=== PATIENT | female | born 1985 | race Hispanic/Latino ===

== ENCOUNTER 2020-10-28 20:10 | Emergency (ER) | payer OTHER ==
[~2020-10-28 20:10] MED LIST: MESA0.374 PO; OMEP20CA12 PO; PRED20TA3 PO
[2020-10-28] MEDS ORDERED: ACETAMINOPHEN-CODEINE 300/30MG TAB ONE (20:55)
[2020-10-28] MEDS ORDERED: ONDANSETRON ODT 4 MG TAB ONE (20:55)
== END 2020-10-28 21:29 | disposition home or self-care (01) ==
LOC: EDH 20:10
DX: R51.9 Headache, unspecified (principal); R11.0 Nausea; Z20.828 Contact with and (suspected) exposure to other viral communicable diseases; Z90.49 Acquired absence of other specified parts of digestive tract; Z98.890 Other specified postprocedural states

== ENCOUNTER 2022-03-29 13:22 | Emergency (ER) | payer OTHER ==
[~2022-03-29] VITALS: Ht 160 cm; Wt 58.5 kg
[2022-03-29 14:08] LABS: APPEARANCE,URINE Clear (CLEAR); BILIRUBIN,URINE Negative (NEGATIVE); COLOR,URINE Yellow (YELLOW); GLUCOSE, URINE (UA) Negative (NEGATIVE); KETONES,URINE Negative (NEGATIVE); LEUKOCYTE ESTERASE ,URINE Negative (NEGATIVE); NITRATE,URINE Negative (NEGATIVE); OCCULT BLOOD,URINE Negative (NEGATIVE); PH,URINE 6.5 (5.0-8.0); PROTEIN,URINE Negative (NEGATIVE); UROBILINOGEN,URINE 0.2 mg/dL (0.2-1.0)
[2022-03-29 14:19] LABS: HCG,QUAL RESULT NEGATIVE (NEGATIVE)
[2022-03-29] MEDS ORDERED: 0.9%NACL 1000ML 1,000 ML IV ONE (15:00)
[2022-03-29 15:12] LABS: BASOPHILS % (AUTO) 0.5 % (0.0-5.0); HEMATOCRIT 40.6 % (36-48); LYMPHOCYTES % (AUTO) 40.9 % (21.0-51.0); MEAN CORPUSCULAR HEMOGLOBIN 29.2 pg (27.0-33.0); MEAN CORPUSCULAR HGB CONC 32.3 g/dL (32.0-36.0); MEAN CORPUSCULAR VOLUME 90.4 fL (79-99); MONOCYTES % (AUTO) 5.9 % (3.0-13.0); NEUTROPHILS % (AUTO) 48.5 % (40.0-77.0); PLATELET COUNT (AUTO) 499 K/uL (130-400); RED BLOOD CELL COUNT(AUTO) 4.49 MIL/uL (4.00-5.50); RED CELL DISTRIBUTION WIDTH 14.4 % (11.0-15.5); WHITE BLOOD COUNT (AUTO) 9.7 K/uL (4.8-10.8)
[2022-03-29] MEDS ORDERED: MECL-226 PO (15:15)
[2022-03-29 15:26] LABS: CREATININE 0.7 mg/dL (0.5-1.5); POTASSIUM 3.7 mmol/L (3.5-5.1)
[2022-03-29] MEDS ORDERED: MECLIZINE HCL 25 MG TABLET PO ONE (15:30)
[2022-03-29 15:31] LABS: ALBUMIN 4.1 g/dL (3.5-5.0); BILIRUBIN,TOTAL 0.8 mg/dL (0.2-1.0); TOTAL PROTEIN, SERUM 8.2 g/dL (6.0-8.3)
[2022-03-29 16:45] VITALS: BP 118/71
== END 2022-03-29 16:46 | disposition home or self-care (01) ==
LOC: EDH 13:22
DX: H81.10 Benign paroxysmal vertigo, unspecified ear (principal); Z88.6 Allergy status to analgesic agent; Z88.8 Allergy status to other drugs, medicaments and biological substances; Z79.899 Other long term (current) drug therapy; Z90.49 Acquired absence of other specified parts of digestive tract; Z98.890 Other specified postprocedural states
CPT/HCPCS: 36415; 80053; 81003; 81025; 84484; 85025; 93005; 96360; 99284; J7030

== ENCOUNTER 2022-06-13 15:37 | Emergency (ER) | payer OTHER ==
[~2022-06-13] VITALS: Ht 157.5 cm; Wt 59.0 kg
[~2022-06-13 15:37] MED LIST changes: +MECL-226 PO
[2022-06-13 16:30] LABS: BASOPHILS % (AUTO) 0.5 % (0.0-5.0); EOSINOPHILS % (AUTO) 5.1 % (0.0-8.0); HEMATOCRIT 40.7 % (36-48); LYMPHOCYTES % (AUTO) 32.3 % (21.0-51.0); MEAN CORPUSCULAR HEMOGLOBIN 29.1 pg (27.0-33.0); MEAN CORPUSCULAR HGB CONC 32.4 g/dL (32.0-36.0); MEAN CORPUSCULAR VOLUME 89.6 fL (79-99); MONOCYTES % (AUTO) 9.1 % (3.0-13.0); NEUTROPHILS % (AUTO) 52.8 % (40.0-77.0); PLATELET COUNT (AUTO) 422 K/uL (130-400); RED BLOOD CELL COUNT(AUTO) 4.54 MIL/uL (4.00-5.50); RED CELL DISTRIBUTION WIDTH 15.1 % (11.0-15.5); WHITE BLOOD COUNT (AUTO) 8.8 K/uL (4.8-10.8)
[2022-06-13 16:32] LABS: APPEARANCE,URINE CLEAR (CLEAR); BILIRUBIN,URINE NEGATIVE (NEGATIVE); COLOR,URINE YELLOW (YELLOW); GLUCOSE, URINE (UA) NEGATIVE (NEGATIVE); KETONES,URINE NEGATIVE (NEGATIVE); LEUKOCYTE ESTERASE ,URINE NEGATIVE (NEGATIVE); NITRATE,URINE NEGATIVE (NEGATIVE); OCCULT BLOOD,URINE NEGATIVE (NEGATIVE); PROTEIN,URINE NEGATIVE (NEGATIVE); UROBILINOGEN,URINE 0.2 mg/dL (0.2-1.0)
[2022-06-13] MEDS ORDERED: ACETAMINOPHEN 500 MG TABLET ONE (16:34)
[2022-06-13 16:36] LABS: HCG,QUALITATIVE URINE NEGATIVE (NEGATIVE)
[2022-06-13 16:39] LABS: CREATININE 0.8 mg/dL (0.5-1.5); POTASSIUM 3.4 mmol/L (3.5-5.1)
[2022-06-13] MEDS: ONDANSETRON 4MG TABLET PO ONE (16:41)
[2022-06-13] MEDS: FAMOTIDINE 20MG VIAL IV ONE (16:41)
[2022-06-13] MEDS: DICYCLOMINE HCL 10 MG/5 ML ML PO ONE (16:41)
[2022-06-13 16:46] VITALS: BP 113/73
[2022-06-13] MEDS ORDERED: ACETAMINOPHEN 500 MG TABLET PO ONE (17:00)
[2022-06-13] MEDS ORDERED: DICY20TA2 PO (17:10)
== END 2022-06-13 17:28 | disposition home or self-care (01) ==
LOC: EDH 15:37
DX: A08.4 Viral intestinal infection, unspecified (principal); Z88.6 Allergy status to analgesic agent; Z90.49 Acquired absence of other specified parts of digestive tract; Z79.52 Long term (current) use of systemic steroids; Z79.899 Other long term (current) drug therapy
CPT/HCPCS: 99283; 96374; 80053; 83690; 85025; 81003; 81025; 36415; Q0162; J3490

== ENCOUNTER 2022-09-24 19:50 | Emergency (ER) | payer OTHER ==
[~2022-09-24] VITALS: Ht 157.5 cm; Wt 59.9 kg
[~2022-09-24 19:50] MED LIST changes: +DICY20TA2 PO
[2022-09-24] MEDS ORDERED: PROCHLORPERAZINE 10MG/2ML INJ IV ONE (20:30)
[2022-09-24] MEDS ORDERED: DiphenhydrAMINE HCL 50 MG/ML VIAL IV ONE (20:30)
[2022-09-24 20:33] LABS: APPEARANCE,URINE CLEAR (CLEAR); BILIRUBIN,URINE NEGATIVE (NEGATIVE); COLOR,URINE COLORLESS (YELLOW); GLUCOSE, URINE (UA) NEGATIVE (NEGATIVE); KETONES,URINE NEGATIVE (NEGATIVE); LEUKOCYTE ESTERASE ,URINE 25 Leu/uL (NEGATIVE); NITRATE,URINE NEGATIVE (NEGATIVE); OCCULT BLOOD,URINE NEGATIVE (NEGATIVE); PH,URINE 5.5 (5.0-8.0); PROTEIN,URINE NEGATIVE (NEGATIVE); UROBILINOGEN,URINE 0.2 mg/dL (0.2-1.0)
[2022-09-24 20:47] LABS: HCG,QUALITATIVE URINE NEGATIVE (NEGATIVE)
[2022-09-24 20:54] LABS: RBC,URINE 0-1 /HPF (0-1); SQUAMOUS EPITHELIAL CELL,UR MOD /HPF (0-2)
[2022-09-24 22:09] VITALS: BP 102/62
[2022-09-24] MEDS ORDERED: PROC5TAB54 PO (22:16)
== END 2022-09-24 22:47 | disposition home or self-care (01) ==
LOC: EDH 19:50
DX: G43.909 Migraine, unspecified, not intractable, without status migrainosus (principal); Z88.6 Allergy status to analgesic agent; Z88.8 Allergy status to other drugs, medicaments and biological substances; Z79.899 Other long term (current) drug therapy; Z98.890 Other specified postprocedural states
CPT/HCPCS: 99284; 96374; 96375; 81001; 81025; J1200; J0780

== ENCOUNTER 2022-12-09 08:44 | Emergency (ER) | payer OTHER ==
[~2022-12-09] VITALS: Ht 160 cm; Wt 61.2 kg
[~2022-12-09 08:44] MED LIST changes: +PROC5TAB54 PO
[2022-12-09 09:13] LABS: BASOPHILS % (AUTO) 0.5 % (0.0-5.0); EOSINOPHILS % (AUTO) 12.3 % (0.0-8.0); HEMATOCRIT 34.8 % (36-48); LYMPHOCYTES % (AUTO) 30.8 % (21.0-51.0); MEAN CORPUSCULAR HEMOGLOBIN 26.8 pg (27.0-33.0); MEAN CORPUSCULAR HGB CONC 31.6 g/dL (32.0-36.0); MEAN CORPUSCULAR VOLUME 84.9 fL (79-99); MONOCYTES % (AUTO) 7.1 % (3.0-13.0); PLATELET COUNT (AUTO) 621 K/uL (130-400); RED CELL DISTRIBUTION WIDTH 14.4 % (11.0-15.5); WHITE BLOOD COUNT (AUTO) 14.1 K/uL (4.8-10.8)
[2022-12-09 09:27] LABS: CREATININE 0.8 mg/dL (0.5-1.5); POTASSIUM 3.4 mmol/L (3.5-5.1)
[2022-12-09] MEDS ORDERED: ONDANSETRON 4MG INJ IVP ONE (09:30)
[2022-12-09] MEDS ORDERED: MORPHINE 2 MG SYG IVP ONE (09:30)
[2022-12-09] MEDS ORDERED: 0.9%NACL 1000ML 1,000 ML IV ONE (09:30)
[2022-12-09 09:32] LABS: ALBUMIN 3.3 g/dL (3.5-5.0); TOTAL PROTEIN, SERUM 7.4 g/dL (6.0-8.3)
[2022-12-09 09:45] LABS: APPEARANCE,URINE CLEAR (CLEAR); BILIRUBIN,URINE NEGATIVE (NEGATIVE); COLOR,URINE COLORLESS (YELLOW); GLUCOSE, URINE (UA) NEGATIVE (NEGATIVE); KETONES,URINE NEGATIVE (NEGATIVE); LEUKOCYTE ESTERASE ,URINE NEGATIVE Leu/uL (NEGATIVE); NITRATE,URINE NEGATIVE (NEGATIVE); OCCULT BLOOD,URINE NEGATIVE (NEGATIVE); PROTEIN,URINE NEGATIVE (NEGATIVE); UROBILINOGEN,URINE 0.2 mg/dL (0.2-1.0)
[2022-12-09 10:13] LABS: HCG,QUALITATIVE URINE NEGATIVE (NEGATIVE)
[2022-12-09] MEDS ORDERED: IOHEXOL 350 MG/ML 100ML INFUS..BTL IV ONE (12:03)
[2022-12-09] MEDS ORDERED: PRED20TA3 PO (14:40)
[2022-12-09] MEDS ORDERED: SOLU-MEDROL 40MG VIAL IVP ONE (15:00)
[2022-12-09 15:27] VITALS: BP 132/78
== END 2022-12-09 15:27 | disposition home or self-care (01) ==
LOC: EDH 08:44
DX: K51.90 Ulcerative colitis, unspecified, without complications (principal); E86.0 Dehydration; E87.6 Hypokalemia; G43.909 Migraine, unspecified, not intractable, without status migrainosus; Z79.52 Long term (current) use of systemic steroids; Z88.6 Allergy status to analgesic agent
CPT/HCPCS: 99285; 74177; 96374; 96361; 96375; 82270; 80053; 85025; 81003; 81025; 36415; 87507; J7030; J2405; J2920; Q9967

== ENCOUNTER 2023-06-15 10:20 | Emergency (ER) | payer OTHER ==
[~2023-06-15] VITALS: Ht 160 cm; Wt 63.5 kg
[2023-06-15 11:15] LABS: CREATININE 0.6 mg/dL (0.5-1.5); POTASSIUM 3.4 mmol/L (3.5-5.1)
[2023-06-15 11:16] LABS: APPEARANCE,URINE CLOUDY (CLEAR); BILIRUBIN,URINE NEGATIVE (NEGATIVE); COLOR,URINE YELLOW (YELLOW); GLUCOSE, URINE (UA) NEGATIVE (NEGATIVE); KETONES,URINE NEGATIVE (NEGATIVE); LEUKOCYTE ESTERASE ,URINE MODERATE Leu/uL (NEGATIVE); NITRATE,URINE NEGATIVE (NEGATIVE); OCCULT BLOOD,URINE LARGE (NEGATIVE); PH,URINE 5.5 (5.0-8.0); PROTEIN,URINE TRACE mg/dL (NEGATIVE); UROBILINOGEN,URINE 0.2 mg/dL (0.2-1.0)
[2023-06-15 11:18] LABS: BASOPHILS # (AUTO) 0.03 K/uL (0.00-0.20); BASOPHILS % (AUTO) 0.3 % (0.0-5.0); EOSINOPHILS # (AUTO) 0.41 K/uL (0.00-0.70); EOSINOPHILS % (AUTO) 4.5 % (0.0-8.0); HEMATOCRIT 33.1 % (36-48); IMMATURE GRANULOCYTE ABSOLUTE 0.05 K/uL (0-1); LYMPHOCYTES % (AUTO) 21.9 % (21.0-51.0); MEAN CORPUSCULAR HEMOGLOBIN 28.5 pg (27.0-33.0); MEAN CORPUSCULAR HGB CONC 33.5 g/dL (32.0-36.0); MEAN CORPUSCULAR VOLUME 84.9 fL (79-99); MONOCYTES # (AUTO) 0.6 K/uL (0.1-1.0); MONOCYTES % (AUTO) 6.7 % (3.0-13.0); PLATELET COUNT (AUTO) 577 K/uL (130-400); WHITE BLOOD COUNT (AUTO) 9.1 K/uL (4.8-10.8)
[2023-06-15 11:21] LABS: ADD UA MICROSCOPIC YES
[2023-06-15 11:44] LABS: BILIRUBIN,TOTAL 0.5 mg/dL (0.2-1.0); TOTAL PROTEIN, SERUM 7.3 g/dL (6.0-8.3)
[2023-06-15 11:49] LABS: BACTERIA,URINE Few /HPF (None Seen); SQUAMOUS EPITHELIAL CELL,UR Few /HPF (0-2); WBC,URINE >100 /HPF (0-1)
[2023-06-15] MEDS ORDERED: DIPHENHYDRAMINE HCL 25 MG CAPSULE ONE (12:45)
[2023-06-15 12:47] VITALS: BP 110/76; PULSE 74; RESP 16; O2SAT 99
[2023-06-15] MEDS ORDERED: DIPHENHYDRAMINE HCL 25 MG CAPSULE PO ONE (13:00)
[2023-06-15] MEDS ORDERED: LACTATED RINGERS 1000ML 1,000 ML IV ONE (13:00)
== END 2023-06-15 14:03 | disposition home or self-care (01) ==
LOC: EDH 10:20
DX: O26.892 Other specified pregnancy related conditions, second trimester (principal); H81.10 Benign paroxysmal vertigo, unspecified ear; R82.81 Pyuria; Z3A.16 16 weeks gestation of pregnancy; Z79.52 Long term (current) use of systemic steroids; Z79.899 Other long term (current) drug therapy; Z88.6 Allergy status to analgesic agent
CPT/HCPCS: 99283; 96360; 80053; 84702; 85025; 87088; 81001; 36415; Q0163; J7120

== ENCOUNTER 2024-11-07 11:44 | Emergency (ER) | payer OTHER ==
[~2024-11-07] VITALS: Ht 160 cm; Wt 59.0 kg
[2024-11-07 12:32] LABS: BASOPHILS # (AUTO) 0.06 K/uL (0.00-0.20); BASOPHILS % (AUTO) 0.6 % (0.0-5.0); EOSINOPHILS # (AUTO) 0.85 K/uL (0.00-0.70); EOSINOPHILS % (AUTO) 8.1 % (0.0-8.0); HEMATOCRIT 37.5 % (36-48); IMMATURE GRANULOCYTE ABSOLUTE 0.02 K/uL (0-1); LYMPHOCYTES # (AUTO) 2.9 K/uL (1.0-4.8); LYMPHOCYTES % (AUTO) 28.1 % (21.0-51.0); MEAN CORPUSCULAR HEMOGLOBIN 28.6 pg (27.0-33.0); MEAN CORPUSCULAR HGB CONC 31.7 g/dL (32.0-36.0); MEAN CORPUSCULAR VOLUME 90.1 fL (79-99); MONOCYTES # (AUTO) 0.8 K/uL (0.1-1.0); MONOCYTES % (AUTO) 7.3 % (3.0-13.0); NEUTROPHILS # (AUTO) 5.8 K/uL (1.8-7.7); NEUTROPHILS % (AUTO) 55.7 % (40.0-77.0); PLATELET COUNT (AUTO) 583 K/uL (130-400); RED BLOOD CELL COUNT(AUTO) 4.16 MIL/uL (4.00-5.50); RED CELL DISTRIBUTION WIDTH 14.6 % (11.0-15.5); WHITE BLOOD COUNT (AUTO) 10.5 K/uL (4.8-10.8)
[2024-11-07] MEDS ORDERED: Solu-medROL 125MG VIAL IVP STA (12:57)
[2024-11-07 13:09] LABS: CREATININE 0.5 mg/dL (0.5-1.0); POTASSIUM 3.8 mmol/L (3.5-5.1)
[2024-11-07] MEDS: Solu-medROL 125MG VIAL IM ONE (13:20)
[2024-11-07 13:46] LABS: APPEARANCE,URINE CLEAR (CLEAR); BILIRUBIN,URINE NEGATIVE (NEGATIVE); COLOR,URINE COLORLESS (YELLOW); GLUCOSE, URINE (UA) NEGATIVE (NEGATIVE); KETONES,URINE NEGATIVE (NEGATIVE); LEUKOCYTE ESTERASE ,URINE NEGATIVE Leu/uL (NEGATIVE); NITRATE,URINE NEGATIVE (NEGATIVE); OCCULT BLOOD,URINE NEGATIVE (NEGATIVE); PH,URINE 6.5 (5.0-8.0); PROTEIN,URINE NEGATIVE (NEGATIVE); UROBILINOGEN,URINE 0.2 mg/dL (0.2-1.0)
[2024-11-07 13:48] LABS: ADD UA MICROSCOPIC NO
[2024-11-07] MEDS ORDERED: METH4TAB3 PO (14:00)
--- NOTE | 2024-11-07 14:01 | ERN ---
ED Note History of Present Illness Stated Complaint: LOOSE STOOL Chief Complaint: Diarrhea Time Seen by MD: 11:45 Time Seen by Midlevel: 11:50 Dictation: 39-year-old female with a history of ulcerative colitis coming in complaining of diarrhea since Tuesday. Patient states he has no blood in the stool knee blood on wiping patient is attributing to wiping too much. Patient is currently on Humira. 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 States she has been appointment today and I do feel good to decided to come in. Patient states it is feels like her flare-ups. Allergies: Coded Allergies: aspirin (Unverified Allergy, Unknown, 03/29/22) bismuth subsalicylate (Unverified Allergy, Unknown, 03/29/22) ibuprofen (Unverified Allergy, Unknown, 03/29/22) Home Meds Active Scripts Prednisone (Prednisone) 20 Mg Tablet, 40 MG PO AD for 7 Days, #14 TAB Prov:LANCE LIZARRAGA MD 12/09/22 Prochlorperazine Maleate (Compazine) 5 Mg Tab, 5 MG PO TID for migraine headache, #15 TAB Prov:JENNIE JACOBO MD 09/24/22 Dicyclomine HCl (Bentyl) 20 Mg Tab, 20 MG PO QIDP, #28 TAB Prov:MAYANK JUNE 06/13/22 Meclizine HCl (Meclizine HCl) 12.5 Mg Tablet, 25 MG PO TID PRN for DIZZINESS, #15 TAB Prov:JOY HOPKINS 03/29/22 Reported Medications Mesalamine (Mesalamine ER) 0.375 Gm Cap.er.24h, 1.5 GM PO DAILY, CAPSULE. 12/09/19 Prednisone (Prednisone) 20 Mg Tablet, 40 MG PO DAILY, TAB 12/09/19 Omeprazole (Omeprazole) 20 Mg Capsule.dr 20 MG PO DAILY, CAP 12/09/19 Past Medical History Past Medical History: Other Additional Past Medical Hx: ULCERATIVE COLITIS Surgical History: Surgical History Other: LEFT ACL REPAIR Family History: Negative Social History: Negative : 4 Para: 3 Review of System Dictation Constitutional: Negative for fever,chills, and weight loss Eyes: Negative for injury, pain,redness, and discharge ENT: Negative for injury,pain or swelling Cardiovascular: Negative for chest pain, palpitations, and edema Respiratory: Negative for shortness of breath, cough, and wheezing, Abdomen/GI: Positive for abdominal pain, no nausea, no vomiting, diarrhea Back: Negative for injury and pain : Negative for injury, bleeding and discharge MS/Extremity: Negative for injury and deformity Skin: Negative for rash, and discoloration Neuro: Negative for headache, weakness, numbness, tingling, and seizure Psych: Negative for suicide ideation, homicidal ideation, and hallucinations Review of Systems: was completed Initial Vital Sign VS Vital Signs Date Time Temp Pulse Resp B/P (MAP) Pulse Ox O2 Delivery O2 Flow Rate FiO2 11/07/24 11:58 97.3 88 20 117/75 99 Room Air 11/07/24 12:39 0 21 Physical Exam Dictation General: awake, alert, NAD Head/Face: Normocephalic, atraumatic Eyes: PERRL, EOMI, vision at baseline ENT: oral cavity clear, TMs clear, no signs of infection Neck: Trachea midline, supple, no nuchal rigidity Cardiovascular: RRR, normal S1/S2, No MRGs, no JVD Respiratory: CTAB, no respiratory distress, No rales or wheezes Abdomen: Soft, 2/10 pain to the lower abdominal area, non-distended, normal bowel sounds, no guarding or rebound. Skin: Warm, dry, normal turgor, no rash MS/Extremity: Pulses equal, no cyanosis, neurovascular intact, FROM Neuro: COAx4, GCS 15, strength 5/5, CN 2-12 intact, normal cerebellar exam, normal gait, Psych: Normal behavior, mood, and affect normal Results (Laboratory/Radiology) Laboratory/Radiology Laboratory Tests Test 11/07/24 12:17 11/07/24 12:35 White Blood Count 10.5 K/uL (4.8-10.8) Red Blood Count 4.16 MIL/uL (4.00-5.50) Hemoglobin 11.9 g/dL (12.0-16.0) L Hematocrit 37.5 % (36-48) Mean Corpuscular Volume 90.1 fL (79-99) Mean Corpuscular Hemoglobin 28.6 pg (27.0-33.0) Mean Corpuscular Hemoglobin Concent 31.7 g/dL (32.0-36.0) L Red Cell Distribution Width 14.6 % (11.0-15.5) Platelet Count 583 K/uL (130-400) H Mean Platelet Volume 9.7 fL (7.5-10.5) Immature Granulocyte % (Auto) 0.2 % (0-1) Neutrophils (%) (Auto) 55.7 % (40.0-77.0) Lymphocytes (%) (Auto) 28.1 % (21.0-51.0) Monocytes (%) (Auto) 7.3 % (3.0-13.0) Eosinophils (%) (Auto) 8.1 % (0.0-8.0) H Basophils (%) (Auto) 0.6 % (0.0-5.0) Neutrophils # (Auto) 5.8 K/uL (1.8-7.7) Lymphocytes # (Auto) 2.9 K/uL (1.0-4.8) Monocytes # (Auto) 0.8 K/uL (0.1-1.0) Eosinophils # (Auto) 0.85 K/uL (0.00-0.70) H Basophils # (Auto) 0.06 K/uL (0.00-0.20) Absolute Immature Granulocyte (auto 0.02 K/uL (0-1) Nucleated Red Blood Cells 0.0 % (0.0-0.19) Sodium Level 143 mmol/L (136-145) Potassium Level 3.8 mmol/L (3.5-5.1) Chloride Level 108 mmol/L (101-111) Carbon Dioxide Level 27 mmol/L (21-32) Blood Urea Nitrogen 3 mg/dL (7-18) L Creatinine 0.5 mg/dL (0.5-1.0) Glomerular Filtration Rate Calc 123 mL/min (>90) Random Glucose 84 mg/dL (70-105) Lactic Acid Level 1.0 mmol/L (0.8-2.5) Total Calcium 9.1 mg/dL (8.5-10.1) Human Chorionic Gonadotropin, Quant 1 mIU/mL (0-5) Urine Color COLORLESS (YELLOW) Urine Appearance CLEAR (CLEAR) Urine pH 6.5 (5.0-8.0) Urine Specific [place] 1.004 (1.001-1.031) Urine Protein NEGATIVE mg/dL (NEGATIVE) Urine Glucose (UA) NEGATIVE mg/dL (NEGATIVE) Urine Ketones NEGATIVE mg/dL (NEGATIVE) Urine Occult Blood NEGATIVE (NEGATIVE) Urine Nitrate NEGATIVE (NEGATIVE) Urine Bilirubin NEGATIVE mg/dL (NEGATIVE) Urine Urobilinogen 0.2 mg/dL (0.2-1.0) Urine Leukocyte Esterase NEGATIVE Toni/uL Labs Reviewed?: Yes ED Course ED Course Orders Procedure Category Date Status Time Cbc With Differential LAB 11/07/24 Complete 12:02 Basic Metabolic Panel LAB 11/07/24 Complete 12:02 Urinalysis Profile LAB 11/07/24 Complete 12:02 Hcg,Quantitative LAB 11/07/24 Complete 12:02 Lactic Acid LAB 11/07/24 Complete 12:02 Methylprednisolone PHA 11/07/24 Complete Succ 125mg (Solu-Medr 12:57 Methylprednisolone PHA 11/07/24 Complete Succ 125mg (Solu-Medr 13:30 Current Medications Medications (Trade) Dose Ordered Sig/Aiden Route PRN Reason Start Time Stop Time Status Last Admin Dose Admin Methylprednisolone Sodium Succinate (Solu-medROL 125MG) 125 mg ONCE ONCE IM 11/07/24 13:30 11/07/24 13:31 DC 11/07/24 13:20 Methylprednisolone Sodium Succinate (Solu-medROL 125MG) 125 mg ONCE STAT IVP 11/07/24 12:57 11/07/24 13:16 DC Vital Signs Date Time Temp Pulse Resp B/P (MAP) Pulse Ox O2 Delivery O2 Flow Rate FiO2 11/07/24 12:39 97.3 88 20 117/75 99 Room Air* 0 21 11/07/24 11:58 97.3 88 20 117/75 99 Room Air Medical Decision Making MDM MDM: 39-year-old female with a history of ulcerative colitis coming in complaining of diarrhea since Tuesday. Patient states he has no blood in the stool knee blood on wiping patient is attributing to wiping too much. Patient is currently on Humira. 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 States she has been appointment today and I do feel good to decided to come in. Patient states it is feels like her flare-ups..CBC shows a leukocytosis, no anemia, thrombocythemia. Chemistry shows no abnormality. UA shows no evidence of urinary tract infection. Patient was not . Recommended patient has pain medication steroids, patient states she has does not think she needs the pain medication but she does think she needs to the steroid. One dose of Solu- Medrol IM given. We will discharge patient follow up with the Dr. Charles. Patient verbalized understanding, answered all questions. Differential diagnosis: Ulcerative colitis flare up, UTI, gastroenteritis Rationale: Tests considered and ordered secondary to shared decision making include: Previous outside records reviewed: Old ER visits. Risk of complication and/or morbidity or mortality of patient management: None Medications-Per medication reconciliation Need for hospitalization: Patient does not meet criteria for hospitalization. Need for emergency major/minor surgery: No There are no social concerns with this patient. Prescription drug management Prescriptions will include symptomatic care Patient's prior external medical records from other ER visits were reviewed by me as indicated. Prior testing and results from previous visits were reviewed. Prior tests were taken into account with medical decision making and resource utilization, independent historian/historians were used to obtain complete medical history. I independently interpreted the test that were performed, results were reviewed by me and considered findings on radiology if ordered. Medical management and examination interpretation discussions were had by me with other qualified healthcare professionals as indicated for the patient's care. DX & DISP Disposition: Discharge Departure Impression: Primary Impression: Exacerbation of ulcerative colitis Condition: Stable Scripts Methylprednisolone (Medrol) 4 Mg Tab.ds.pk 1 TAB PO AD for 6 Days, #21 TAB 0 Refills 6 on day 1 then reduce by one tablet daily until gone Prov: OMID HWANG [employer] 11/07/24 Additional Instructions: Please follow up with your specialist. Return to ER if symptoms worsen. Referrals: SELF,REFERRAL (PCP) Time of Disposition: 14:00 and I agree with, Diagnosis and Plan OMID HWANG NP Nov 07, 2024 14:01
[2024-11-07 14:15] VITALS: BP 120/79; PULSE 79; RESP 18; TEMP 97.3; O2SAT 99
== END 2024-11-07 14:16 | disposition home or self-care (01) ==
LOC: EDH 11:44
DX: K51.90 Ulcerative colitis, unspecified, without complications (principal); R10.2 Pelvic and perineal pain; Z79.52 Long term (current) use of systemic steroids; Z79.899 Other long term (current) drug therapy; Z88.6 Allergy status to analgesic agent; Z98.890 Other specified postprocedural states
CPT/HCPCS: 99283; 80048; 84702; 85025; 83605; 81003; 36415; 96372; J2919